=== PATIENT | female | born 1995 | race Caucasian/White ===

== ENCOUNTER 2024-02-14 16:15 | Emergency (ER) | payer BC, SELFPAY ==
[2024-02-14 16:16] VITALS: BMI 23.4
[2024-02-14 16:30] VITALS: BP 121/80; PULSE 67; RESP 16; TEMP 37.2; O2SAT 98
--- NOTE | 2024-02-14 16:32 | XR_ITS ---
Examination: Pelvic ultrasound, transabdominal, complete Technique: Transabdominal ultrasound of the pelvis performed using grayscale imaging Date and time of exam: February 14, 2024 1728 hrs. Indications: Pelvic pain beginning 2 days ago Findings: Uterus 8.1 x 3.5 x 5.3 cm Endometrial stripe 0.2 cm No uterine mass or intrauterine gestation Right ovary 2.8 x 1.2 x 2.2 cm arterial flow Left ovary 4.1 x 2.0 x 2.3 cm arterial flow Impression: Negative examination
--- NOTE | 2024-02-14 16:32 | PD.EDRME ---
Rapid Medical Screening Exam RME Arrival date/time: 02/14/24 16:15 28-year-old female presents to the emergency department complains of pelvic pain and back pain patient recently treated for UTI Chief Complaint: Back Pain/Injury Vital signs: Vital Signs Temperature 99 F 02/14/24 16:30 Pulse Rate 67 02/14/24 16:30 Respiratory Rate 16 02/14/24 16:30 Blood Pressure 121/80 02/14/24 16:30 Pulse Oximetry (%) 98 02/14/24 16:30 Oxygen Delivery Method Room Air 02/14/24 16:30
[2024-02-14 16:50] LABS: Basophils # (Auto) 0.1 Thou/mm3 (0.0-0.2); Basophils % (Auto) 1 % (0-2.5); Eosinophils % (Auto) 0 % (0-10); Hemoglobin 13.8 g/dL (12.0-16.0); Immature Granulocytes % (Auto) 0 % (0-0); Immature Granulocytes Auto 0.03 Thou/mm3 (0.00-0.00); Lymphocytes % (Auto) 27 % (10-50); Mean Corpuscular HGB Conc 34.5 g/dl (31.0-37.0); Mean Corpuscular Hemoglobin 32.2 pg (25.0-35.0); Mean Corpuscular Volume 93 fL (80-100); Monocytes # (Auto) 0.6 Thou/mm3 (0.0-0.8); Monocytes % (Auto) 5 % (0-12); Neutrophils # (Auto) 7.4 Thou/mm3 (1.8-7.7); Neutrophils % (Auto) 67 % (37-80); Nucleated Red Blood Cell % 0 /100 WBC (0); Platelet Count 261 Thou/mm3 (140-440); RDW Standard Deviation 44.7 fL (36.4-46.3); Red Blood Count 4.29 Miln/mm3 (4.00-5.20)
[2024-02-14 16:54] LABS: Collection Type, Urine Clean Catch
[2024-02-14 17:03] LABS: Bacteria,Urine Rare; Bilirubin,Urine Negative (Negative); Blood,Urine Negative (Negative); Clarity,Urine Clear (Clear/Hazy); Color,Urine Colorless (Lt Yel-Yel); Culture Indicated,Urine Not Indicated; Glucose, Urine Negative (Negative); Ketones,Urine Negative (Negative); Leukocyte Esterase,Urine Negative (Negative); Nitrite,Urine Negative (Negative); PH,Urine 6.5 (5.0-7.0); Protein,Urine Negative (Neg - Trace); RBC,Urine 1 /hpf (0-3); Specific Gravity,Urine 1.011 (1.001-1.035); Squamous Epithelial Cell,Urine 1 /hpf (0-5); Urobilinogen,Urine Negative mg/dL (0.0-1.0); WBC,Urine < 1 /hpf (0-5)
[2024-02-14 17:16] LABS: HCG Qualitative,Urine Negative
[2024-02-14 18:38] LABS: Alanine Aminotransferase 13 U/L (10-49); Albumin, Serum 5.5 gm/dL (3.5-5.0); Albumin/Globulin Ratio 1.6 (1.2-2.2); Alkaline Phosphatase 86 U/L (46-116); Anion Gap 10 (7-16); BUN/Creatinine Ratio 11 Ratio (12-20); Bilirubin,Total 0.5 mg/dL (0.3-1.2); Blood Urea Nitrogen 8 mg/dL (9-23); Calcium 10.1 mg/dL (8.3-10.6); Calcium (Corrected) 10.1 mg/dL (8.5-10.1); Carbon Dioxide 23.9 mMol/L (20.0-31.0); Chloride 100 mMol/L (98-107); Creatinine (Component) 0.7 mg/dL (0.6-1.3); Estimated Creatinine Clearance 85.9 mL/min (>60); Globulin 3.4 gm/dL (2.3-3.5); Glucose 104 mg/dL (74-106); Lipase 43 U/L (12-53); Osmolality,Calculated 266 (275-295); Potassium 4.2 mMol/L (3.4-5.1); Sodium 134 mMol/L (136-145); Total Protein 8.9 gm/dL (5.7-8.2); eGFR > 60 See Note
[2024-02-14 19:02] LABS: Aspartate Amino Transferase < 8 U/L (0-34)
--- NOTE | 2024-02-14 23:48 | PD.EDBACK ---
ED Back Injury Pain RME/HPI General Chief Complaint: Back Pain/Injury Stated Complaint: RIGHT FLANK PAIN Time Seen by Provider: 02/14/24 23:47 Arrival date/time: 02/14/24 16:15 Limitations: no limitations RME / HPI RME / HPI Narrative: 02/14/24 16:15 28-year-old female presents to the emergency department complains of pelvic pain and back pain patient recently treated for UTI. Dr. Randle's Main ED Evaluation: Patient tested in the clinic a few days ago positive for UTI, and placed on Macrobid for 5 days. Patient coming with similar symptoms. Not sexually active at the time. 28-year-old female coming into the emergency department with increased urgency, frequency, and burning when she urinates. This has been going on for 2 days. The patient states that she had some LEFT flank pain 2 days ago. No nausea vomiting or diarrhea. No vaginal discharge No abdominal pain No cough. Patient states she is not on control. Patient reported to me that the pain is on the left flank. Related Data Previous Rx's ?Medication ?Instructions ?Recorded acetaminophen 650 mg 650 mg PO Q8H PRN fever or pain 04/11/19 tablet,extended release #30 tabs benzonatate 100 mg capsule See Rx Instructions .Route 04/11/19 (Roberto Porter) .COMPLEX cough #30 caps cetirizine 5 mg-pseudoephedrine ER 1 tab PO Q12H #20 tabs 04/11/19 120 mg tablet,extended release,12hr (Zyrtec-D) ibuprofen 600 mg tablet 600 mg PO Q8H PRN fever or pain 04/11/19 #30 tabs ipratropium bromide 21 mcg (0.03 See Rx Instructions .Route 04/11/19 %) nasal spray .COMPLEX #30 mL cephalexin 500 mg capsule 500 mg PO TID #21 caps 02/14/24 Allergies Allergy/AdvReac Type Severity Reaction Status Date / Time No Known Allergies Allergy Verified 02/14/24 16:18 Review of Systems Review of Systems Systems Reviewed: All systems reviewed, normal except as documented Past Medical History Past Medical History CARDIAC: Negative Congestive Heart Failure RESPIRATORY: Negative Chronic Obstructive Pulmonary Disease (COPD) GENITOURINARY: Negative Renal Disease ENDOCRINE: Negative Diabetes Mellitus Type 1 or Diabetes Mellitus Type 2 Social History SMOKING STATUS: Never smoker ED Exam General Limitations: Present no limitations General appearance: Present alert and in no apparent distress Head Head exam: Present atraumatic Eye Eye exam: Present normal appearance, PERRL and EOMI ENT ENT exam: Present normal exam, normal oropharynx and mucous membranes moist Neck Neck exam: Present normal inspection, full ROM and trachea midline Chest Chest inspection: Present normal inspection and symmetric chest wall rise Respiratory Respiratory exam: Present normal lung sounds bilaterally Cardiovascular Cardiovascular exam: Present regular rate, normal rhythm and normal heart sounds Abdominal Exam Abdominal exam: Present soft and normal bowel sounds Extremities Exam Extremities exam: Present normal inspection and full ROM Back Exam Back exam: Present normal inspection and full ROM Neurological Exam Neurological exam: Present alert, oriented X3 and CN II-XII intact Psychiatric Psychiatric exam: Present normal affect and normal mood Skin Skin exam: Present warm, dry, intact and normal color Course Quality Measures none Orders Category Date Time Status US pelvic complete Stat Exams 02/14/24 16:32 Completed CBC Stat Lab 02/14/24 16:36 Completed Comprehensive Metabolic Panel Stat Lab 02/14/24 17:25 Completed HCG Qualitative,Urine Stat Lab 02/14/24 16:47 Completed Lipase Stat Lab 02/14/24 17:25 Completed UA, C/S IF [Urinalysis, C/S if Indicated] Stat Lab 02/14/24 16:47 Completed Lidocaine 1% 20 ml [Xylocaine 1% 20 ML] Med 02/15/24 00:00 Discontinued 2.1 ml IM X1 ONE cefTRIAXone [Rocephin] Med 02/14/24 23:54 Discontinued 1,000 mg IM X1 ONE cefTRIAXone [Rocephin] 1,000 mg Med 02/15/24 00:03 Discontinued Lidocaine 1% 20 ml [Xylocaine 1% 20 ML] 2.1 ml IM X1 Vital Signs Vital signs: Vital Signs Temperature 99 F 02/14/24 16:30 Pulse Rate 67 02/14/24 16:30 Respiratory Rate 16 02/14/24 16:30 Blood Pressure 121/80 02/14/24 16:30 Pulse Oximetry (%) 98 02/14/24 16:30 Oxygen Delivery Method Room Air 02/14/24 16:30 Pulse ox is 98% on room air, which is normal according to my interpretation. Back Pain / Injury MDM Narrative MDM Narrative:: Differential diagnosis includes pyelonephritis, UTI, musculoskeletal pain. Patient is not having right lower quadrant pain and otherwise no anorexia. She has no rebound or tenderness on exam. Minimal left flank tenderness palpation. White count is 11 but otherwise I do not see abnormal creatinine. We discussed risks and benefits for treatment and the patient is requesting a dose of ceftriaxone and Keflex. Return precautions are given and understood and the patient will follow-up with her primary care in the next 72 hours. Patient aware to return for worsening symptoms, or any other concerns. She will drink lots of fluids to stay hydrated with Pedialyte and Gatorade. Tylenol and or Motrin as needed. Patient data External records reviewed:: [facility] previous records (Per chart review, patient has no relevant previous ED visits or admissions to this facility.) Clinical information provided by:: patient Social determinants that could affect healthcare access:: none Patient has the following chronic illnesses:: none How is presenting disease/condition affected by chronic disease/condition?: no chronic disease Evaluation data The following diagnostics were reviewed and interpreted by me:: lab results and radiology exam(s) Lab and/or radiology exams considered but not ordered:: none Interpretation Summary: CBC is normal, CMP is normal, Lipase is normal, UA shows rare bacteria, according to my interpretation. ---- I have personally reviewed the radiology data and agree with the radiologist's interpretation below: [facility] Report Signed Patient: JOCELYNE RAYGOZA Record#: [id number] Birthdate: 1995 Age/Sex: 28 / F Location: [facility] Attending Dr: Ordering Physician: Deedee URBANO)Prasanna NP Date of Service: 02/14/24 Procedure(s): US pelvic complete Accession Number(s): [id number] cc: Deedee URBANO)Prasanna NP; Hakeem Ramos MD; NO PRIMARY/FAMILY,PHYSICIAN~ Examination: Pelvic ultrasound, transabdominal, complete Technique: Transabdominal ultrasound of the pelvis performed using grayscale imaging Date and time of exam: February 14, 2024 1728 hrs. Indications: Pelvic pain beginning 2 days ago Findings: Uterus 8.1 x 3.5 x 5.3 cm Endometrial stripe 0.2 cm No uterine mass or intrauterine gestation Right ovary 2.8 x 1.2 x 2.2 cm arterial flow Left ovary 4.1 x 2.0 x 2.3 cm arterial flow Impression: Negative examination Dictated By: Hakeem Ramos MD Signed By: <Electronically signed by Hakeem Ramos MD in OV> 02/14/24 9347 Medications / Prescriptions Medications or Prescriptions considered but not ordered:: none Medication administrations:: Medication Administration History Discontinued Medications Ceftriaxone Sodium (Ceftriaxone Sodium 500 Mg Vial) 1,000 mg IM X1 ONE Stop: 02/14/24 23:55 Last Admin: 02/15/24 00:08 Dose: Not Given Documented By: SVETA Non-Admin Reason: Discontinued Ceftriaxone Sodium 1,000 mg/ (Lidocaine HCl 2.1 ml) 0 mg IM X1 ONE Stop: 02/15/24 00:04 Last Admin: 02/15/24 00:10 Dose: 2.1 mg Documented By: SE Lidocaine HCl (Lidocaine Hcl 1% 20 Ml Vial) 2.1 ml IM X1 ONE Stop: 02/15/24 00:01 Last Admin: 02/15/24 00:05 Dose: Not Given Documented By: SE Non-Admin Reason: Duplicate Medication on eMAR see above, if any Consultations Consultation(s) initiated? (list below): No Diagnosis Differential diagnosis back pain/injury: pyelonephritis and other (UTI, musculoskeletal pain) Most likely diagnosis given after review of the tests above:: see below Admission Indicated Admission indicated?: not indicated Admission Request Was there a request for admission?: No Disposition Plan Disposition Plan: Discharge Discharge Attestation Discharge Attestation: The patient and all family members were given an opportunity to ask questions and understood the discharge instructions. Discharge instructions specifically effects, indications for sooner follow up or return to the emergency department, and the expected course of current diagnosis. Patient condition: Stable Discharge Plan Plan Patient Disposition: HOME (Self Care) Prescriptions/Referrals Prescriptions/Med Rec: New cephalexin 500 mg capsule 500 mg PO TID Qty: 21 0RF No Action acetaminophen 650 mg tablet extended release 650 mg PO Q8H PRN (Reason: fever or pain) Qty: 30 0RF Rx Instructions: swallow whole; do not crush, chew, break, dissolve, cut, or open ibuprofen 600 mg tablet 600 mg PO Q8H PRN (Reason: fever or pain) Qty: 30 0RF Rx Instructions: prn pain / fever ipratropium bromide 0.03 % spray,non-aerosol See Rx Instructions .Route .COMPLEX Qty: 30 0RF Rx Instructions: 2 sprays to each nostril q6-8 hours prn congestion; wait 30 seconds between sprays cetirizine-pseudoephedrine [Zyrtec-D] 5-120 mg tablet extended release 12 hr 1 tab PO Q12H Qty: 20 0RF benzonatate [Tessalon Perles] 100 mg capsule See Rx Instructions .Route .COMPLEX Qty: 30 0RF Rx Instructions: 1-2 cap(s) PO Q8 hours prn cough Referrals: No Primary/Family,Physician [Primary Care Provider] - In 1 week Problem List Clinical Impression: UTI (urinary tract infection), Acute left flank pain Patient/Caregiver Discharge Instructions Education Materials: ED Flank Pain, Uncertain Cause, ED CYSTITIS Female Adult Additional Instructions: Today we discussed options and at this time he would like to be treated for possible urinary tract infection or kidney infection. Please follow-up with your primary care in the next 48 to 72 hours to get the results of the urine culture. Return sooner for worsening symptoms, or any other concerns. You can take [id number] Tylenol 650 mg 3 times a day and/or Motrin 600 mg 3 times a day with food x 2 to 3 days. Print Language: [place] Stand Alone Forms: Alanna Award Info., Patient Portal Info Letter
[2024-02-15] MEDS: cefTRIAXone 1,000 MG, LIDOCAINE 1% 20 ML 2.1 ML IM (00:10)
[2024-02-15 00:27] VITALS: BP 124/79; PULSE 68; RESP 17; TEMP 37.2; O2SAT 99
== END 2024-02-15 00:28 | disposition home or self-care (01) ==
PROVIDERS: Nurse Practitioner Primary Care; Emergency Provider Emergency Medicine
DX: N39.0 Urinary tract infection, site not specified (principal)
CPT/HCPCS: 36415; 76856; 80053; 81001; 81025; 83690; 85025; 87086; 96372; 99284; J0696; J3490